=== PATIENT | male | born 1945 | race Caucasian/White ===

== ENCOUNTER 2018-05-30 06:29 | Day surgery (SDC) | payer OTHER ==
[2018-05-30] MEDS: BETADINE OPTH PREP OP PRN ×2 (06:45→07:40)
[2018-05-30] MEDS: TETRACAINE 0.5% UNIT-DOSE OP PRN ×2 (06:45→07:40)
[2018-05-30] MEDS: CYCLOGYL 2% OPTH OP PRN ×3 (06:46→06:56)
[2018-05-30] MEDS ORDERED: BRIMONIDINE TARTRATE 0.2% OPTH SOL OP PRN (06:54)
[2018-05-30] MEDS ORDERED: ZOFRAN 4 MG/2 ML IVP ONE (06:54)
[2018-05-30] MEDS ORDERED: BSS WITH EPINEPHRINE OP ONE (06:54)
[2018-05-30] MEDS ORDERED: LIDOCAINE 1%/PHENYLEPHRINE 1.5% BSS (SURGERY) INTRAOCULA ONE (06:54)
[2018-05-30] MEDS ORDERED: LIDOCAINE 1% 20 ML MDV ID STA (06:54)
[2018-05-30] MEDS ORDERED: DEX-MOXI-KETOR OPTH INJ 1/0.5/0.4 MG/ML IO ONE (06:54)
[2018-05-30 07:03] VITALS: TEMP 97.3
[2018-05-30] MEDS ORDERED: VERSED ONE (07:40)
[2018-05-30] MEDS ORDERED: ZOFRAN 4 MG/2 ML ONE (07:40)
[2018-05-30] MEDS ORDERED: SUBLIMAZE ONE (07:40)
[2018-06-01 10:48] VITALS: BP 121/66
== END 2018-05-30 09:00 | disposition home or self-care (01) ==
LOC: SURG 06:29
PROVIDERS: ATTEND Ophthalmology
DX: H25.811 Combined forms of age-related cataract, right eye (principal)